=== PATIENT | male | born 1995 | race Caucasian/White ===

== ENCOUNTER 2020-09-21 15:02 | Observation (INO) | payer BC, SELFPAY ==
[2020-09-21] VITALS (20 sets, daily range): BP systolic 92–143; BP diastolic 37–73; PULSE 60–113; RESP 13–30; TEMP 37.4–39.7; O2SAT 96–100
--- NOTE | ~2020-09-21 | XR_ITS ---
EXAMINATION: XR ankle LT min 3V EXAM DATE: 09/21/2020 19:31 INDICATION: redness, swelling and pain x 2 days to dorsal/lateral side. TECHNIQUE: Left ankle frontal, lateral and oblique projections obtained and reviewed. There is no pr ior study for comparison. FINDINGS: The left ankle mortise appears intact. There are no acute fractures or dislocations ident ified. There is no subcutaneous gas. The soft tissue is unremarkable. There are no radiopaque for eign bodies. IMPRESSION: Unremarkable left ankle exam. Reviewed, dictated and finalized at location A.
--- NOTE | ~2020-09-21 | XR_ITS ---
EXAMINATION: XR chest 2V EXAM DATE: 09/21/2020 19:31 INDICATION: fever of 103, onset: today . TECHNIQUE: Frontal and lateral projections of the chest obtained and reviewed. There is no prior alena dy for comparison. FINDINGS: The lungs are clear. There are no pleural effusions. The cardiomediastinal silhouette is within normal limits. There is no pneumothorax suspected. The bones and soft tissues are unremarkab le. IMPRESSION: No acute cardiopulmonary findings. Reviewed, dictated and finalized at location A.
[2020-09-21 18:16] LABS: Basophils Percent Auto 0.2 % (0.2-1.2); Hematocrit 48.9 % (42.0-52.0); Hemoglobin 16.8 g/dL (14.0-18.0); Immature Granulocyte Absolute 0.05 K/mm3 (0.00-0.031); Immature Granulocyte Percent A 0.6 % (0-0.5); Lymphocytes Absolute Auto 0.63 K/mm3 (0.9-3.2); Lymphocytes Percent Auto 7.4 % (18.3-44.2); Mean Corpuscular HGB Conc 34.4 g/dl (32-36); Mean Corpuscular Hemoglobin 30.8 pg (26-34); Mean Corpuscular Volume 89.6 fl (80-100); Mean Platelet Volume 9.4 fl (7.4-10.4); Monocytes Absolute Auto 0.6 K/mm3 (0.1-0.6); Monocytes Percent Auto 6.6 % (2.6-8.5); Neutrophils Absolute Auto 7.2 K/mm3 (1.3-6.7); Neutrophils Percent Auto 85.2 % (45.5-73.1); Platelet Count Result 161 k/mm3 (150-375); Red Blood Count 5.46 M/mm3 (4.6-6.20); Red Cell Distribution Width 12.2 % (11.5-14.5); White Blood Count 8.5 K/mm3 (4.5-10.0)
[2020-09-21 18:27] LABS: Lactic Acid Reflex 1.2 mmol/L (0.7-2.1)
[2020-09-21 18:33] LABS: Alanine Aminotransferase 29 U/L (4-50); Albumin Level 4.9 g/dL (3.5-5.1); Alkaline Phosphatase 60 U/L (38-126); Anion Gap 13 mmol/L (8-16); Aspartate Amino Transferase 33 U/L (17-59); Bilirubin,Total 1.6 mg/dL (0.2-1.3); Blood Urea Nitrogen 17 mg/dL (9-20); Calcium 9.7 mg/dL (8.4-10.2); Carbon Dioxide 25 mmol/L (22-30); Chloride 96 mmol/L (98-107); Estimated CRCL calculation 117 ml/min; Estimated Glomerular Filt Rate > 60; Glucose 100 mg/dL (65-110); Potassium 3.8 mmol/L (3.4-5.0); Sodium 134 mmol/L (137-145)
[2020-09-21 18:53] LABS: CRP 32.1 mg/dL (<1.0)
--- NOTE | 2020-09-21 19:17 | ED.FEVER ---
HPI - Fever General Chief Complaint: Fever Stated Complaint: reddness to l ankle Time Seen by Provider: 09/21/20 18:56 Source: patient and RN notes reviewed Mode of arrival: ambulatory Limitations: no limitations History of Present Illness HPI Narrative: This is a 25 year old male who presents for evaluation of fever and headache. Patient states he started having fever last night . He was found to have fever in ER of 103.5, and he states he has not taken any medication since last night. He also reports constant frontal headache for 2 days. He denies associated visual changes, nausea, vomiting, sinus symptoms or sore throat. He also reports left groin pain when he walks since this morning. His left ankle became red today but he denies pain at the location of redness. He also denies injury or previous surgery. Related Data Home Medications Medication Instructions Recorded Confirmed No Home Medications 09/22/20 09/22/20 Allergies Allergy/AdvReac Type Severity Reaction Status Date / Time No Known Allergies Allergy Unverified 02/13/17 11:21 Review of Systems Review of Systems: All systems reviewed & are unremarkable except as noted in HPI and below Constitutional: Constitutional: Reports chills, Reports fatigue and Reports fever(s) ENT: Denies nasal congestion Cardiovascular: Cardiovascular: Denies chest pain Respiratory: Respiratory: Denies cough and Denies dyspnea Gastrointestinal: Gastrointestinal: Denies abdominal pain, Denies diarrhea, Denies nausea and Denies vomiting Musculoskeletal: Musculoskeletal: Reports myalgias Neurologic: Reports headache(s) [facility] Past Medical History Medical History (Updated 09/22/20 @ 02:32 by Lydia Graham DO) Obesity Obstructive sleep apnea Surgical History Surgical History (Updated 09/22/20 @ 02:32 by Lydia Graham DO) History of lateral meniscus repair of right knee History of sleeve gastrectomy (~2016) He has lost 145 lb and has kept the majority of the weight off. History of tonsillectomy Family History Family History Mother No significant medical problems Father No significant medical problems Social History Social History (Updated 09/22/20 @ 02:34 by Lydia Graham DO) Social History: he lives in [place] with his of almost a year. They are expecting their 1st child soon. 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 He is a lifelong nonsmoker and does not use illicit substances. Smoking status: Never smoker Alcohol intake: current Substance use: unknown Substance use type: does not use Gender identity (if verbalized by the patient): Male Spiritual care concerns: No Exam Const: General: no acute distress and alert Orientation/consciousness: patient oriented x3 HENMT: Ears: TM's normal bilaterally Eyes: EOM: EOMs intact bilaterally Resp: Effort & Inspection: normal respiratory effort and no retractions Auscultation: clear to auscultation bilaterally Cardio: Rate: tachycardic Rhythm: regular rhythm Heart sounds: no murmurs Peripheral pulses: Peripheral pulses 2+ throughout GI: GI Palp: Yes Soft to palpation, No Tenderness to palpation present (GI) and No Guarding due to palpation present (GI) Neuro: General: patient oriented x3, moves all extremities and CN's II-XI intact bilaterally Extrem: Other: left lateral ankle and dorsum foot with well demarcated area of erythema, no significant swelling no tenderness, no groin edema or redness Psych: Mental Status: mental status grossly normal Affect: normal affect Course Reevaluation(s) Reevaluation #1: PAtient states he feels much better. BP at 2200 107/55 (MAP 68) BP at 113/49( MAP 64). I discussed with patient about admission . He will stay for observation given BP is soft. He is non toxic appearing. Dr. Graham accepts for obs
[2020-09-21] MEDS: LACTATED RINGERS 1,000 ML 999 ML IV CONT ×3 (19:54→21:50)
[2020-09-21] MEDS: ceFAZolin 2 GM/D5W 50 ML 2 GM/50 ML BAG IVPB (19:56)
[2020-09-21] MEDS: KETOROLAC 30 MG/ML VIAL (*BKC) IV PUSH (20:42)
[2020-09-21] MEDS: diphenhydrAMINE HCl INJ 50 MG/ML VIAL 25 MG IV PUSH (20:46)
[2020-09-21] MEDS: METOCLOPRAMIDE HCL INJ 10 MG/2 ML VIAL IV PUSH (20:47)
[2020-09-22] VITALS (14 sets, daily range): BP systolic 108–124; BP diastolic 40–49; PULSE 56–87; RESP 13–22; TEMP 36.4–37.8; O2SAT 99–100
--- NOTE | 2020-09-22 01:21 | PC.NURSE ---
Report to [facility]. 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
--- NOTE | 2020-09-22 01:38 | ADMGEN ---
This patient, Tucker Iraheta, was admitted to Medical Room 260-01 @ 0135. Patient/family oriented to hospital policies and general routines including ID bracelet, bed and alarms, visiting hours, pain management, procedures, bathroom and other care routines, personal items, smoking policy, room service/diet, and visiting hours. Information on how to activate the Rapid Response Team has been discussed. Patient/Family are encouraged to report perceived risks to care and to ask questions if they do not understand what they are told or what they should do.
--- NOTE | 2020-09-22 01:41 | PM.IMHP ---
H&P: HPI History of Present Illness Date/Time: 09/22/20 01:41 Chief Complaint: fever, left foot pain Narrative: 25-year-old male with past medical history of obesity who presented to the ER with fever and headache. He reports that he has been feeling ill for about 3 days. 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 He also felt as if his hearing had disappeared and then rebounded. This was followed by the severe frontal headache that has been pretty much constant since that time. He had noticed some swelling to his left ankle about 2 days ago with some tenderness when he would step. He did not notice any erythema to his ankle until the morning of the . Over the course of the day erythema in the ankle worsened and the swelling worsens as well. He had decreased appetite for the last 2 days as well. 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 He took some Tylenol for his headache which did not seem to help his headache much. After he received IV fluids and Tylenol in the ER his headache has since resolved. He had prior episodes of Thrombophlebitis a year so ago. He had noticed some pain in his left groin that started 3 days ago when his left ankle started swelling. He denies any injury to the ankle. 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 He denies any chest pain or shortness of breath. He has not been vaccinated against COVID. Review of Systems Review of Systems: Narrative: 12 systems were reviewed with pertinent positives and negatives per HPI. Except as documented in the HPI, all other systems were reviewed and are negative. [facility] Past Medical History Medical History (Updated 09/22/20 @ 02:32 by Lydia Graham DO) Obesity Obstructive sleep apnea Surgical History Surgical History (Updated 09/22/20 @ 02:32 by Lydia Graham DO) History of lateral meniscus repair of right knee History of sleeve gastrectomy (~2015) He has lost 145 lb and has kept the majority of the weight off. History of tonsillectomy Family History Family History Mother No significant medical problems Father No significant medical problems Social History Social History (Updated 09/22/20 @ 02:34 by Lydia Graham DO) Social History: he lives in [place] with his of almost a year. They are expecting their 1st child soon. 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 He is a lifelong nonsmoker and does not use illicit substances. Smoking status: Never smoker Alcohol intake: current Substance use: unknown Substance use type: does not use Gender identity (if verbalized by the patient): Male Spiritual care concerns: No Meds Home Medications and Allergies Home Medications Medication Instructions Recorded Confirmed Type No Home Medications 09/22/20 09/22/20 History Allergies Allergy/AdvReac Type Severity Reaction Status Date / Time No Known Allergies Allergy Unverified 02/13/17 11:21 Vital Signs Vital Signs - 24 hr 09/21/20 15:04 09/21/20 18:45 09/21/20 18:46 Temperature 103.5 F H Pulse Rate 110 H 113 H 96 Respiratory Rate 18 24 H 28 H Blood Pressure 143/73 H 123/59 L Pulse Oximetry 100 99 100 09/21/20 19:16 09/21/20 20:16 09/21/20 21:00 Temperature 99.3 F Pulse Rate 97 92 Respiratory Rate 30 H 19 Blood Pressure 109/50 L 111/39 L Pulse Oximetry 99 98 09/21/20 21:02 09/21/20 21:15 09/21/20 21:31 Temperature Pulse Rate 73 74 71 Respiratory Rate 21 H 20 20 Blood Pressure 110/39 L 92/46 L 96/46 L Pulse Oximetry 98 98 96 09/21/20 21:52 09/21/20 22:
[2020-09-22] MEDS: SODIUM CHLORIDE 0.9% IV 1,000 ML 125 ML IV CONT (01:49)
[2020-09-22 06:10] LABS: Basophils Percent Auto 0.3 % (0.2-1.2); Eosinophils Percent Auto 0.5 % (0-4.4); Hematocrit 40.2 % (42.0-52.0); Hemoglobin 13.3 g/dL (14.0-18.0); Immature Granulocyte Absolute 0.03 K/mm3 (0.00-0.031); Immature Granulocyte Percent A 0.5 % (0-0.5); Mean Corpuscular HGB Conc 33.1 g/dl (32-36); Mean Corpuscular Hemoglobin 30.1 pg (26-34); Mean Platelet Volume 9.7 fl (7.4-10.4); Monocytes Absolute Auto 0.6 K/mm3 (0.1-0.6); Monocytes Percent Auto 10.7 % (2.6-8.5); Neutrophils Absolute Auto 4.2 K/mm3 (1.3-6.7); Platelet Count Result 126 k/mm3 (150-375); Red Blood Count 4.42 M/mm3 (4.6-6.20); Red Cell Distribution Width 12.1 % (11.5-14.5); White Blood Count 5.9 K/mm3 (4.5-10.0)
[2020-09-22 06:36] LABS: Alanine Aminotransferase 22 U/L (4-50); Albumin Level 3.5 g/dL (3.5-5.1); Alkaline Phosphatase 43 U/L (38-126); Anion Gap 7 mmol/L (8-16); Aspartate Amino Transferase 26 U/L (17-59); Blood Urea Nitrogen 19 mg/dL (9-20); Calcium 8.7 mg/dL (8.4-10.2); Carbon Dioxide 28 mmol/L (22-30); Chloride 101 mmol/L (98-107); Estimated CRCL calculation 117 ml/min; Estimated Glomerular Filt Rate > 60; Glucose 98 mg/dL (65-110); Potassium 3.6 mmol/L (3.4-5.0); Sodium 136 mmol/L (137-145)
[2020-09-22] MEDS: ENOXAPARIN 40 MG/0.4 ML SYRINGE SUB-Q (08:31)
[2020-09-22 12:18] LABS: Hematocrit 40.7 % (42.0-52.0); Hemoglobin 13.9 g/dL (14.0-18.0)
[2020-09-22 12:50] LABS: CRP 22.5 mg/dL (<1.0)
--- NOTE | 2020-09-22 14:08 | PM.DS ---
DS: Admitting Diagnosis Admitting Diagnosis Sepsis, cellulitis DS: Discharge Diagnosis Discharge Diagnosis (1) Sepsis: Qualifiers: Sepsis acute organ dysfunction status: without acute organ dysfunction Sepsis type: sepsis due to unspecified organism Qualified Code(s): A41.9 - Sepsis, unspecified organism Code(s): A41.9 - Sepsis, unspecified organism Status: Acute Assessment and Plan: met criteria for sepsis on presentation with fever, tachycardia, tachypnea, and elevated bilirubin. Source of sepsis was related to cellulitis of the left ankle. Bilirubin levels normalized. Fever, tachypnea, and tachycardia resolved. He was rehydrated with IV fluids. Blood cultures negative to date and final results will be monitored. (2) Cellulitis of left ankle: Code(s): L03.116 - Cellulitis of left lower limb Status: Acute Assessment and Plan: Lateral left ankle. Treated with IV Ancef Area of erythema remain confined to marked borders. He had symptomatic improvement, noting diminished erythema, warmth, and tenderness to palpation Left ankle x-ray unremarkable. CRP improved with treatment Will continue with p.o. Keflex x7 days. (3) Normocytic anemia: Code(s): D64.9 - Anemia, unspecified Status: Acute Assessment and Plan: hemoglobin and hematocrit within normal limits upon presentation with approximately 3 point drop following admission suspect dilutional effect given IV fluid resuscitation H&H remained stable on repeat labs and anticipate improvement back to baseline DS: Summary Hospital Course Hospital Course: date of admission: 09/21/2020 date of discharge: 09/22/2020 Tucker Iraheta is a 25-year-old male with obstructive sleep apnea on CPAP who presented to the emergency department on 09/21/2020 with complaints of fever and headache ongoing for 2 days. also noted redness of the left ankle and some discomfort when weight-bearing. Upon presentation to the emergency department, his temperature was 103.5?, HR 110, BP 143/73, additional vital signs stable, CBC and BMP unremarkable, lactic 1.2, CRP 32.1, ankle x-ray unremarkable, and CXR with no acute cardiopulmonary findings. He was admitted to the hospitalist service for further evaluation and management. please see above for further details. On my initial evaluation, he was feeling back to his usual state of health and had no complaints. He had symptomatic improvement and was able to bear weight more comfortably. Fever and tachypnea resolved. 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 He understands that he would need to come back for immediate evaluation should he have fevers, chills, or worsening of cellulitis. we discussed that he will need to follow-up with PCP for monitoring. Also discussed need for completing entire course of antibiotic therapy. He denied diabetes, recent antibiotic use, history of MRSA, animal exposure. Given his overall improvement, he was determined to be stable for discharge. We discussed worrisome signs and symptoms for which to return at length and he was educated on his new medications. He was discharged in hemodynamically stable condition on 09/22/2020. Status at Discharge Functional status at discharge: independent ambulation Overall status at discharge: patient is back to baseline Time Spent with Patient Time attestation: Total time spent providing and/or coordinating discharge services: 45 minutes Time spent: Greater than 30 minutes Exam Narrative: Exam Narrative: Mr. Iraheta is an obese, well-appearing 25-year-old male who is lying supine in bed. he appears comfortable and is in NARD. Neuro: awake, alert and oriented x4, speech clear, no focal neuro deficits noted HEENMT: normocephalic, atraumatic, EOMI, sclerae anicteric, moist oral mucosa Respiratory: mathew
== END 2020-09-22 14:40 | disposition home or self-care (01) ==
LOC: ANHED 22:59 → ANH2MED 09-22 00:04
PROVIDERS: Emergency Medicine; Physician Assistant; Admitting Provider Internal Medicine; Emergency Provider General Practice; Visit Provider Internal Medicine
DX: A41.9 Sepsis, unspecified organism (principal); L03.116 Cellulitis of left lower limb; R50.9 Fever, unspecified; M79.672 Pain in left foot; E66.9 Obesity, unspecified; G47.33 Obstructive sleep apnea (adult) (pediatric); D64.9 Anemia, unspecified; Z68.41 Body mass index [BMI] 40.0-44.9, adult
CPT/HCPCS: 36415; 71046; 73610; 80053; 83605; 85014; 85018; 85025; 86140; 87040; 96361; 96365; 96372; 96375; 96376; 99285; G0378; J0131; J0690; J1200; J1650; J1885; J2765; J7030; J7120